=== PATIENT | male | born 1955 | race Two or more races ===

== ENCOUNTER 2019-06-28 08:28 | Outpatient (CLI) | payer MEDICARE, OTHER ==
[~2019-06-28] VITALS: Ht 167.6 cm; Wt 70.3 kg
[~2019-06-28 08:28] MED LIST: Lidocaine 1% Plain 30 ml INJ PRN
[2019-06-28] MEDS ORDERED: Heparin1,000 units/500ml Premix(Conc:2 units/ml) INJ PRN (08:30)
--- NOTE | 2019-06-28 15:03 | Diagnostic Imaging Report ---
Indication: intermediate accountant venous access Findings: After the indications, procedure, risks, complications, and alternatives of the procedure were explained, written informed consent was obtained. The left upper extremity was prepped with alcohol. All elements of maximal sterile barrier technique were followed including usage of a cap, mask, sterile gown, sterile gloves, hand hygiene and a large sterile sheet. Sonographic evaluation of the upper extremity was performed demonstrating a patent and compressible basilic vein. Access was obtained under real-time ultrasound guidance (with utilization of sterile gel and sterile probe cover) and digital image was saved and archived. An .018 wire was introduced. Needle exchanged for a 5 [place] peel-away sheath. Measurements were obtained. A 5 [place] dual-lumen Power PICC line catheter was cut to 42 cm and introduced over the wire. Peel-away sheath and wire were removed.Catheter was secured to the skin using 2-0 Prolene suture. Both ports aspirate and flush easily. A single fluoroscopic image shows the distal tip in the superior vena cava. Total fluoroscopic time: 21.4 seconds. Impression: Successful placement of an upper extremity PICC line catheter
== END 2019-06-28 10:28 | disposition home or self-care (01) ==
LOC: RAD 08:28
DX: M86.9 Osteomyelitis, unspecified (principal); Z79.899 Other long term (current) drug therapy; L02.619 Cutaneous abscess of unspecified foot
CPT/HCPCS: 36573; 76937; J1644; J2001; 36569